=== PATIENT | male | born 1980 | race Caucasian/White ===

== ENCOUNTER 2019-01-08 12:07 | Emergency (ER) | payer OTHER ==
--- NOTE | 2019-01-08 14:02 | C.PDOC ---
History Of Present Illness 38 y/o male comes in to ED complaining of back pain and headache, stating that his symptoms are chronic and has been having it for years. 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 He complains his arms would ache afterwards. After work, patient states he would get a headache and will have difficulty sleeping.Otherwise he denies any fever, chllls, nausea, or vomiting. Patient has no other complaints at this time. 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 Constitutional: Negative for: Fever, Chills Gastrointestinal: Negative for: Nausea, Vomiting Musculoskeletal: Positive for: Back Pain Neurological: Positive for: Headache Physical Exam - Physical Exam Appears: Non-toxic, No Acute Distress Skin: Warm, Dry Head: Atraumatic, Normacephalic Eye(s): bilateral: Normal Inspection Ear(s): Bilateral: Normal Oral Mucosa: Moist Throat: Normal, No Erythema, No Exudate Neck: Supple Respiratory: Normal Breath Sounds, No Rales, No Rhonchi, No Wheezing Gastrointestinal/Abdominal: Soft, No Tenderness Back: No CVA Tenderness, No Paraspinal Tenderness Extremity: Bilateral: Normal Color And Temperature, Normal ROM Neurological/Psych: Oriented x3, Normal Speech ED Course And Treatment O2 Sat by Pulse Oximetry: 100 (RA) Pulse Ox Interpretation: Normal Medical Decision Making Medical Decision Making: Plan: --Motrin 600 mg PO --Tylenol PO Patient referred to clinic and was advised to follow up with specialist. Disposition Counseled Patient/Family Regarding: Need For Followup, Rx Given - Disposition Referrals: [facility] [Outside] Disposition: HOME/ ROUTINE Disposition Time: 14:01 Condition: STABLE Instructions: Headache, Adult (DC) Forms: [facility] (Tajik), Gen Discharge Inst Tajik - POA Present On Arrival: None - Clinical Impression Clinical Impression: Influenza-like illness, Head ache - Scribe Statement The provider has reviewed the documentation as recorded by the Tara Robins Provider Attestation: All medical record entries made by the Tara were at my direction and personally dictated by me. I have reviewed the chart and agree that the record accurately reflects my personal performance of the history, physical exam, medical decision making, and the department course for this patient. I have also personally directed, reviewed, and agree with the discharge instructions and disposition.
[2019-01-08 14:14] VITALS: BP 125/85; PULSE 84; RESP 16; TEMP 98.1
[2019-01-08 14:33] VITALS: O2SAT 100
== END 2019-01-08 14:13 | disposition home or self-care (01) ==
LOC: C.ER 12:07
DX: J11.1 Influenza due to unidentified influenza virus with other respiratory manifestations (principal); R51 Headache

== ENCOUNTER 2019-02-06 09:49 | Outpatient (CLI) | payer OTHER | END 2019-02-06 09:50 | disposition home or self-care (01) | LOC: C.CTH 09:49 | DX: G43.101 Migraine with aura, not intractable, with status migrainosus (principal) ==